=== PATIENT | female | born 1990 | race Caucasian/White ===

== ENCOUNTER 2016-07-18 16:33 | Emergency (ER) | payer OTHER ==
[~2016-07-18] VITALS: Ht 162.6 cm; Wt 96.1 kg
[~2016-07-18 16:33] MED LIST: ALBUTEROL SULF8.5 GM IH; CELEXA; CLEOCIN300 MG PO; DEPAKOTE250 MG PO; MORGIDOX100 MG PO; MOTRIN600 MG PO; MOTRIN800 MG PO; NAPROSYN500 MG PO; NORCO 5/3251 TABLET PO; PERCOCET 5/31 TABLET PO; PRENATABS RX T1 EACH PO; PRENATAL VITAM1 EAC2 PO; ZOFRAN ODT8 MG PO; ZOLOFT25 MG PO; ~No Medications
[2016-07-18 17:46] LABS: EOSINOPHIL (%) 2.3 % (0-5); EOSINOPHIL COUNT 0.2 K/uL (0-0.3); HEMATOCRIT 44.4 % (36.0-46.0); IMMATURE GRANULOCYTE (%) 0.2 % (0.0-0.7); INSTRUMENT ABS NEUTROPHIL CT 3.8 K/uL; LYMPHOCYTE COUNT 4.4 K/uL (1.0-2.8); MCH 25.4 PG (29.0-34.0); MCHC 32.2 G/DL (30.0-36.0); MEAN PLAT.VOLUME 11.1 uM^3 (9.5-12.4); MONOCYTE (%) 4.1 % (3-12); MONOCYTE COUNT 0.4 K/uL (0-0.8); NEUTROPHIL (%) 43.4 % (45-76); NEUTROPHIL COUNT 3.8 K/uL (1.8-6.4); PLATELET COUNT 259 K/uL (156-360); RBC DIS.WIDTH-CV 14.2 % (11.8-14.6); RBC DIS.WIDTH-SD 41.1 % (39-53); RED BLOOD COUNT 5.62 M/uL (3.80-5.20); WHITE BLOOD COUNT 8.8 K/uL (4.1-10.2)
[2016-07-18 17:56] LABS: CHLORIDE 110 mEq/L (99-109)
[2016-07-18 17:57] LABS: SODIUM 139 mEq/L (136-147)
[2016-07-18 17:59] LABS: GLUCOSE 79 mg/dL (70-99)
[2016-07-18 18:00] LABS: ANION GAP 10 MEQ/L (2-14)
[2016-07-18 18:01] LABS: TOTAL BILIRUBIN 0.5 mg/dL (0.0-1.0)
[2016-07-18 18:02] LABS: ALKALINE PHOSPHATASE 77 IU/L (3-129); GFR ESTIMATE (CALCULATED) > 59 mL/min/
[2016-07-18 18:03] LABS: UREA NITROGEN (BUN) 10 mg/dL (9-23)
[2016-07-18 18:11] LABS: QUANTITATIVE HCG < 4.0 MIU/ML
[2016-07-18] MEDS ORDERED: BACLOFEN10 MG PO (19:54)
[2016-07-18] MEDS ORDERED: LORTAB 5-325 M1 EACH PO (19:54)
[2016-07-18] MEDS ORDERED: MOTRIN600 MG PO (19:54)
[2016-07-18 20:08] VITALS: BP 128/74
== END 2016-07-18 20:20 | disposition home or self-care (01) ==
LOC: EME 16:33
PROVIDERS: Emergency Medicine
DX: S39.012A Strain of muscle, fascia and tendon of lower back, initial encounter (principal); R10.9 Unspecified abdominal pain; Z87.442 Personal history of urinary calculi
CPT/HCPCS: 74176; 80053; 81003; 84702; 85025; 99281; 99285; J1885; J2270; J2405; J7030

== ENCOUNTER 2016-08-11 17:01 | Emergency (ER) | payer OTHER ==
[~2016-08-11] VITALS: Ht 162.6 cm; Wt 96.8 kg
[~2016-08-11 17:01] MED LIST changes: +BACLOFEN10 MG PO; +LORTAB 5-325 M1 EACH PO
[2016-08-11 17:52] LABS: HEMATOCRIT 43.4 % (36.0-46.0); MCHC 32.7 G/DL (30.0-36.0); MCV 79.5 FL (83-99); MEAN PLAT.VOLUME 11.2 uM^3 (9.5-12.4); PLATELET COUNT 259 K/uL (156-360); RBC DIS.WIDTH-CV 14.3 % (11.8-14.6); RBC DIS.WIDTH-SD 41.1 % (39-53); RED BLOOD COUNT 5.46 M/uL (3.80-5.20); WHITE BLOOD COUNT 8.4 K/uL (4.1-10.2)
[2016-08-11 18:03] LABS: CHLORIDE 110 mEq/L (99-109); POTASSIUM 4.2 mEq/L (3.7-5.4); SODIUM 140 mEq/L (136-147)
[2016-08-11 18:06] LABS: GLUCOSE 90 mg/dL (70-99)
[2016-08-11 18:07] LABS: ANION GAP 10 MEQ/L (2-14)
[2016-08-11 18:08] LABS: TOTAL BILIRUBIN 0.5 mg/dL (0.0-1.0)
[2016-08-11 18:09] LABS: ALKALINE PHOSPHATASE 67 IU/L (3-129); GFR ESTIMATE (CALCULATED) > 59 mL/min/
[2016-08-11 18:10] LABS: UREA NITROGEN (BUN) 10 mg/dL (9-23)
[2016-08-11 18:13] LABS: LIPASE 12 U/L (1.0-51.0)
[2016-08-11 18:18] LABS: QUANTITATIVE HCG < 4.0 MIU/ML
[2016-08-11 19:07] LABS: BILIRUBIN NEGATIVE; BLOOD NEGATIVE; COLOR YELLOW ((YELLOW)); GLUCOSE (STRIP) NEGATIVE; KETONES NEGATIVE; LEUKOCYTES NEGATIVE; NITRITE NEGATIVE; PROTEIN (STRIP) NEGATIVE; SPECIFIC GRAVITY 1.025 (1.000-1.030); UROBILINOGEN 0.2 MG/DL (0.2-1.0)
[2016-08-11 19:13] LABS: ADD MIUA? NO; UCUL ADDED? NO
[2016-08-11] MEDS ORDERED: PROMETHAZINE HC25 M1 PO (20:27)
[2016-08-11] MEDS ORDERED: BENTYL20 MG PO (20:27)
[2016-08-11 21:00] VITALS: BP 133/84
== END 2016-08-11 21:07 | disposition home or self-care (01) ==
LOC: EME 17:01
DX: A08.4 Viral intestinal infection, unspecified (principal); R11.2 Nausea with vomiting, unspecified; F17.200 Nicotine dependence, unspecified, uncomplicated
CPT/HCPCS: 80053; 81003; 83690; 84702; 85027; 99281; 99284; Q0169

== ENCOUNTER 2016-10-23 19:49 | Emergency (ER) | payer OTHER ==
[~2016-10-23] VITALS: Ht 162.6 cm; Wt 95.5 kg
[~2016-10-23 19:49] MED LIST changes: +BENTYL20 MG PO; +PROMETHAZINE HC25 M1 PO
[2016-10-23] MEDS ORDERED: PREDNISONE50 MG PO (20:33)
[2016-10-23] MEDS ORDERED: MOTRIN600 MG PO (20:33)
[2016-10-23] MEDS ORDERED: FLEXERIL5 MG PO (20:33)
[2016-10-23] MEDS ORDERED: TRAMADOL HCL50 MG PO (20:33)
[2016-10-23 20:49] VITALS: BP 144/90
== END 2016-10-23 20:50 | disposition home or self-care (01) ==
LOC: EME 19:49
DX: M54.5 Low back pain (principal)
CPT/HCPCS: 99281; 99283

== ENCOUNTER 2016-10-25 14:30 | Emergency (ER) | payer OTHER ==
[~2016-10-25] VITALS: Ht 162.6 cm; Wt 96.4 kg
[~2016-10-25 14:30] MED LIST changes: +FLEXERIL5 MG PO; +PREDNISONE50 MG PO; +TRAMADOL HCL50 MG PO
[2016-10-25 15:53] LABS: HEMATOCRIT 41.9 % (36.0-46.0); MCH 26.6 PG (29.0-34.0); MCHC 33.2 G/DL (30.0-36.0); MCV 80.1 FL (83-99); MEAN PLAT.VOLUME 11.3 uM^3 (9.5-12.4); PLATELET COUNT 226 K/uL (156-360); RBC DIS.WIDTH-CV 13.8 % (11.8-14.6); RBC DIS.WIDTH-SD 39.9 % (39-53); RED BLOOD COUNT 5.23 M/uL (3.80-5.20); WHITE BLOOD COUNT 12.1 K/uL (4.1-10.2)
[2016-10-25 16:03] LABS: CHLORIDE 112 mEq/L (99-109); POTASSIUM 3.9 mEq/L (3.7-5.4); SODIUM 142 mEq/L (136-147)
[2016-10-25 16:05] LABS: GLUCOSE 86 mg/dL (70-99)
[2016-10-25 16:06] LABS: ANION GAP 9 MEQ/L (2-14)
[2016-10-25 16:08] LABS: GFR ESTIMATE (CALCULATED) > 59 mL/min/
[2016-10-25 16:09] LABS: UREA NITROGEN (BUN) 10 mg/dL (9-23)
[2016-10-25 16:14] LABS: TROP-I INTERPRETATION NEGATIVE; TROPONIN-I < 0.01 ng/mL (0.0-0.30)
[2016-10-25 17:14] LABS: QUANTITATIVE HCG < 4.0 MIU/ML
[2016-10-25 18:26] LABS: TROP-I INTERPRETATION NEGATIVE; TROPONIN-I < 0.01 ng/mL (0.0-0.30)
[2016-10-25 20:30] VITALS: BP 141/86
== END 2016-10-25 20:31 | disposition home or self-care (01) ==
LOC: EME 14:30
PROVIDERS: Physician Assistant Medical
DX: R07.89 Other chest pain (principal); R51 Headache; F31.9 Bipolar disorder, unspecified; F17.200 Nicotine dependence, unspecified, uncomplicated
CPT/HCPCS: 71020; 80048; 84484; 84702; 85027; 93005; 99281; 99284; J1885; J2270

== ENCOUNTER 2016-11-01 12:24 | Emergency (ER) | payer OTHER ==
[~2016-11-01] VITALS: Ht 162.6 cm; Wt 94.1 kg
[2016-11-01 12:26] VITALS: BP 129/110
[2016-11-01 13:33] LABS: MCH 26.6 PG (29.0-34.0); MCHC 33.2 G/DL (30.0-36.0); MCV 80.3 FL (83-99); MEAN PLAT.VOLUME 11.6 uM^3 (9.5-12.4); PLATELET COUNT 227 K/uL (156-360); RBC DIS.WIDTH-CV 13.4 % (11.8-14.6); RBC DIS.WIDTH-SD 39.2 % (39-53); RED BLOOD COUNT 5.48 M/uL (3.80-5.20)
[2016-11-01 13:48] LABS: CHLORIDE 111 mEq/L (99-109); POTASSIUM 3.9 mEq/L (3.7-5.4); SODIUM 142 mEq/L (136-147)
[2016-11-01 13:50] LABS: GLUCOSE 154 mg/dL (70-99)
[2016-11-01 13:51] LABS: ANION GAP 9 MEQ/L (2-14)
[2016-11-01 13:52] LABS: TOTAL BILIRUBIN 0.6 mg/dL (0.0-1.0)
[2016-11-01 13:53] LABS: ALKALINE PHOSPHATASE 78 IU/L (3-129)
[2016-11-01 13:54] LABS: GFR ESTIMATE (CALCULATED) > 59 mL/min/
[2016-11-01 13:55] LABS: UREA NITROGEN (BUN) 10 mg/dL (9-23)
[2016-11-01 14:04] LABS: QUANTITATIVE HCG < 4.0 MIU/ML
[2016-11-02] MEDS ORDERED: ZOFRAN ODT4 MG PO (02:24)
[2016-11-02] MEDS ORDERED: PERCOCET 5/31 TABLET PO (02:24)
== END 2016-11-01 13:30 | disposition left against medical advice (07) ==
LOC: EME 12:24
DX: R10.9 Unspecified abdominal pain (principal); M54.9 Dorsalgia, unspecified; R11.10 Vomiting, unspecified; Z53.21 Procedure and treatment not carried out due to patient leaving prior to being seen by health care provider
CPT/HCPCS: 80053; 81003; 84702; 85027

== ENCOUNTER 2016-11-01 23:43 | Emergency (ER) | payer OTHER ==
[~2016-11-01] VITALS: Ht 162.6 cm; Wt 94.9 kg
[2016-11-02 00:51] LABS: HEMATOCRIT 43.1 % (36.0-46.0); MCH 26.8 PG (29.0-34.0); MCHC 33.2 G/DL (30.0-36.0); MCV 80.9 FL (83-99); MEAN PLAT.VOLUME 11.5 uM^3 (9.5-12.4); PLATELET COUNT 207 K/uL (156-360); RBC DIS.WIDTH-CV 13.6 % (11.8-14.6); RBC DIS.WIDTH-SD 39.7 % (39-53); RED BLOOD COUNT 5.33 M/uL (3.80-5.20); WHITE BLOOD COUNT 9.2 K/uL (4.1-10.2)
[2016-11-02 01:07] LABS: CHLORIDE 112 mEq/L (99-109); POTASSIUM 3.7 mEq/L (3.7-5.4); SODIUM 143 mEq/L (136-147)
[2016-11-02 01:11] LABS: ANION GAP 8 MEQ/L (2-14); GLUCOSE 103 mg/dL (70-99)
[2016-11-02 01:12] LABS: TOTAL BILIRUBIN 0.2 mg/dL (0.0-1.0)
[2016-11-02 01:13] LABS: ALKALINE PHOSPHATASE 85 IU/L (3-129); GFR ESTIMATE (CALCULATED) > 59 mL/min/
[2016-11-02 01:14] LABS: UREA NITROGEN (BUN) 12 mg/dL (9-23)
[2016-11-02 01:17] LABS: LIPASE 17 U/L (1.0-51.0)
[2016-11-02 01:34] LABS: ADD MIUA? NO; BILIRUBIN NEGATIVE; BLOOD NEGATIVE; COLOR YELLOW ((YELLOW)); GLUCOSE (STRIP) NEGATIVE; KETONES NEGATIVE; LEUKOCYTES NEGATIVE; NITRITE NEGATIVE; PROTEIN (STRIP) NEGATIVE; SPECIFIC GRAVITY 1.027 (1.000-1.030); UCUL ADDED? NO; UROBILINOGEN 0.2 MG/DL (0.2-1.0)
[2016-11-02] MEDS ORDERED: ZOFRAN ODT4 MG PO (02:24)
[2016-11-02] MEDS ORDERED: PERCOCET 5/31 TABLET PO (02:24)
[2016-11-02 02:37] VITALS: BP 123/97
== END 2016-11-02 02:39 | disposition home or self-care (01) ==
LOC: EME 23:43
PROVIDERS: Physician Assistant
DX: K80.50 Calculus of bile duct without cholangitis or cholecystitis without obstruction (principal); F17.200 Nicotine dependence, unspecified, uncomplicated; Z87.442 Personal history of urinary calculi
CPT/HCPCS: 76705; 80053; 81003; 83690; 85027; 99281; 99284; J2270; J2405; J7030

== ENCOUNTER 2016-11-15 11:57 | Emergency (ER) | payer OTHER ==
[~2016-11-15] VITALS: Ht 162.6 cm; Wt 95.0 kg
[~2016-11-15 11:57] MED LIST changes: +ZOFRAN ODT4 MG PO
[2016-11-15 13:19] LABS: HEMATOCRIT 43.8 % (36.0-46.0); MCH 26.8 PG (29.0-34.0); MCHC 33.3 G/DL (30.0-36.0); MCV 80.4 FL (83-99); MEAN PLAT.VOLUME 11.4 uM^3 (9.5-12.4); PLATELET COUNT 242 K/uL (156-360); RBC DIS.WIDTH-CV 13.4 % (11.8-14.6); RBC DIS.WIDTH-SD 38.8 % (39-53); RED BLOOD COUNT 5.45 M/uL (3.80-5.20); WHITE BLOOD COUNT 8.2 K/uL (4.1-10.2)
[2016-11-15 13:25] LABS: INTER. NORMALIZED RATIO 1.1; PROTHROMBIN TIME 11.6 SEC (10.2-12.9)
[2016-11-15 13:28] LABS: CHLORIDE 111 mEq/L (99-109); POTASSIUM 3.7 mEq/L (3.7-5.4); PTT 29.7 SEC (25-37); SODIUM 139 mEq/L (136-147)
[2016-11-15 13:30] LABS: GLUCOSE 140 mg/dL (70-99)
[2016-11-15 13:32] LABS: ANION GAP 9 MEQ/L (2-14); TOTAL BILIRUBIN 0.3 mg/dL (0.0-1.0)
[2016-11-15 13:34] LABS: ALKALINE PHOSPHATASE 83 IU/L (3-129); GFR ESTIMATE (CALCULATED) > 59 mL/min/
[2016-11-15 13:35] LABS: UREA NITROGEN (BUN) 14 mg/dL (9-23)
[2016-11-15 13:37] LABS: LIPASE 18 U/L (1.0-51.0)
[2016-11-15 13:54] LABS: ADD MIUA? YES; BILIRUBIN NEGATIVE; BLOOD NEGATIVE; COLOR YELLOW ((YELLOW)); GLUCOSE (STRIP) NEGATIVE; KETONES NEGATIVE; LEUKOCYTES MODERATE; NITRITE NEGATIVE; PROTEIN (STRIP) NEGATIVE; SPECIFIC GRAVITY 1.018 (1.000-1.030); UROBILINOGEN 0.2 MG/DL (0.2-1.0)
[2016-11-15 13:57] LABS: BACTERIA RARE /HPF; EPITHELIAL CELLS 1+ /HPF; MUCUS TRACE /LPF; RED BLOOD CELLS 0-5 /HPF (0-5); WHITE BLOOD CELLS 0-5 /HPF (0-5)
[2016-11-15] MEDS ORDERED: PERCOCET 5/31 TABLET PO (14:20)
[2016-11-15] MEDS ORDERED: ZOFRAN ODT4 MG PO (14:20)
[2016-11-15 14:52] VITALS: BP 142/82
[2016-11-16] MEDS ORDERED: IRON325 M1 PO (16:13)
[2016-11-16] MEDS ORDERED: ZOFRAN ODT4 MG PO (16:13)
== END 2016-11-15 14:53 | disposition home or self-care (01) ==
LOC: EME 11:57
PROVIDERS: Physician Assistant
DX: R10.13 Epigastric pain (principal); R11.0 Nausea; Z87.442 Personal history of urinary calculi; F17.200 Nicotine dependence, unspecified, uncomplicated
CPT/HCPCS: 71020; 80053; 81003; 83690; 85027; 85610; 85730; 86900; 86901; 93005; 99281; 99284

== ENCOUNTER 2016-11-16 13:52 | Observation (INO) | payer OTHER ==
[~2016-11-16] VITALS: Ht 162.6 cm; Wt 94.4 kg
[2016-11-16 14:27] LABS: HEMATOCRIT 44.5 % (36.0-46.0); MCH 26.3 PG (29.0-34.0); MCHC 32.8 G/DL (30.0-36.0); MEAN PLAT.VOLUME 11.3 uM^3 (9.5-12.4); PLATELET COUNT 238 K/uL (156-360); RBC DIS.WIDTH-CV 13.4 % (11.8-14.6); RED BLOOD COUNT 5.56 M/uL (3.80-5.20); WHITE BLOOD COUNT 8.8 K/uL (4.1-10.2)
[2016-11-16 14:40] LABS: CHLORIDE 111 mEq/L (99-109); POTASSIUM 4.2 mEq/L (3.7-5.4); SODIUM 140 mEq/L (136-147)
[2016-11-16 14:42] LABS: GLUCOSE 112 mg/dL (70-99)
[2016-11-16 14:43] LABS: ANION GAP 10 MEQ/L (2-14)
[2016-11-16 14:44] LABS: TOTAL BILIRUBIN 0.3 mg/dL (0.0-1.0)
[2016-11-16 14:45] LABS: ALKALINE PHOSPHATASE 83 IU/L (3-129)
[2016-11-16 14:46] LABS: GFR ESTIMATE (CALCULATED) > 59 mL/min/
[2016-11-16 14:47] LABS: UREA NITROGEN (BUN) 12 mg/dL (9-23)
[2016-11-16 14:54] LABS: QUANTITATIVE HCG < 4.0 MIU/ML
[2016-11-16 15:30] LABS: ADD MIUA? YES; BILIRUBIN NEGATIVE; BLOOD SMALL; COLOR STRAW ((YELLOW)); GLUCOSE (STRIP) NEGATIVE; KETONES NEGATIVE; LEUKOCYTES NEGATIVE; NITRITE NEGATIVE; PROTEIN (STRIP) NEGATIVE; SPECIFIC GRAVITY 1.008 (1.000-1.030); UROBILINOGEN 0.2 MG/DL (0.2-1.0)
[2016-11-16 15:32] LABS: BACTERIA RARE /HPF; EPITHELIAL CELLS 1+ /HPF; MUCUS TRACE /LPF; RED BLOOD CELLS 0-5 /HPF (0-5); UCUL ADDED? NO; WHITE BLOOD CELLS 0-5 /HPF (0-5)
[2016-11-16 15:56] LABS: LIPASE 12 U/L (1.0-51.0)
[2016-11-16] MEDS ORDERED: IRON325 M1 PO (16:13)
[2016-11-16] MEDS ORDERED: ZOFRAN ODT4 MG PO (16:13)
[2016-11-16 21:05] VITALS: BP 133/77
[2016-11-17] VITALS (7 sets, daily range): BP systolic 117–130; BP diastolic 51–85
[2016-11-18 04:00] VITALS: BP 132/66
[2016-11-18 07:43] VITALS: BP 129/65
[2016-11-18] MEDS ORDERED: PERCOCET 5/31 TABLET PO (09:30)
== END 2016-11-18 11:28 | disposition home or self-care (01) ==
LOC: EME 13:52 → EDOF 16:01 → 2EAST 16:01 → EDOF 16:01 → 2EAST 19:12
PROC: 0FT44ZZ Resection of Gallbladder, Percutaneous Endoscopic Approach (ICD-10-PCS; principal; 2016-11-17)
DX: K80.10 Calculus of gallbladder with chronic cholecystitis without obstruction (principal); F31.9 Bipolar disorder, unspecified; J45.909 Unspecified asthma, uncomplicated; I10 Essential (primary) hypertension; F17.210 Nicotine dependence, cigarettes, uncomplicated; E66.9 Obesity, unspecified
CPT/HCPCS: 80053; 81003; 83690; 84702; 85027; 88304; G0378; J0131; J0690; J1100; J1170; J1885; J2250; J2405; J2710; J2765; J3010; S0028

== ENCOUNTER 2016-12-18 14:29 | Emergency (ER) | payer OTHER ==
[~2016-12-18] VITALS: Ht 162.6 cm; Wt 93.6 kg
[~2016-12-18 14:29] MED LIST changes: +IRON325 M1 PO
[2016-12-18] MEDS ORDERED: VENTOLIN HFA18 GM IH (16:06)
[2016-12-18] MEDS ORDERED: TESSALON PERLE100 MG PO (16:20)
[2016-12-18] MEDS ORDERED: MOTRIN800 MG PO (16:21)
[2016-12-18] MEDS ORDERED: ZITHROMAX Z-PA250 MG PO (16:21)
[2016-12-18 16:31] VITALS: BP 137/94
== END 2016-12-18 16:34 | disposition home or self-care (01) ==
LOC: EME 14:29
DX: J06.9 Acute upper respiratory infection, unspecified (principal); J45.909 Unspecified asthma, uncomplicated; Z87.442 Personal history of urinary calculi; F17.200 Nicotine dependence, unspecified, uncomplicated
CPT/HCPCS: 71020; 94640; 99281; 99284

== ENCOUNTER 2016-12-24 12:24 | Emergency (ER) | payer OTHER ==
[~2016-12-24] VITALS: Ht 162.6 cm; Wt 94.0 kg
[~2016-12-24 12:24] MED LIST changes: +TESSALON PERLE100 MG PO; +VENTOLIN HFA18 GM IH; +ZITHROMAX Z-PA250 MG PO
[2016-12-24 13:26] LABS: EOSINOPHIL (%) 1.9 % (0-5); EOSINOPHIL COUNT 0.2 K/uL (0-0.3); HEMATOCRIT 42.9 % (36.0-46.0); IMMATURE GRANULOCYTE (%) 0.1 % (0.0-0.7); INSTRUMENT ABS NEUTROPHIL CT 3.5 K/uL; LYMPHOCYTE COUNT 4.2 K/uL (1.0-2.8); MCH 26.7 PG (29.0-34.0); MCHC 33.3 G/DL (30.0-36.0); MEAN PLAT.VOLUME 11.3 uM^3 (9.5-12.4); MONOCYTE (%) 4.1 % (3-12); MONOCYTE COUNT 0.3 K/uL (0-0.8); NEUTROPHIL (%) 42.3 % (45-76); NEUTROPHIL COUNT 3.5 K/uL (1.8-6.4); PLATELET COUNT 220 K/uL (156-360); RBC DIS.WIDTH-CV 13.6 % (11.8-14.6); RBC DIS.WIDTH-SD 39.3 % (39-53); RED BLOOD COUNT 5.36 M/uL (3.80-5.20); WHITE BLOOD COUNT 8.3 K/uL (4.1-10.2)
[2016-12-24 13:32] LABS: INTER. NORMALIZED RATIO 1.1; PROTHROMBIN TIME 11.6 SEC (10.2-12.9)
[2016-12-24 13:37] LABS: CHLORIDE 111 mEq/L (99-109); SODIUM 141 mEq/L (136-147)
[2016-12-24 13:39] LABS: GLUCOSE 92 mg/dL (70-99)
[2016-12-24 13:40] LABS: ANION GAP 9 MEQ/L (2-14)
[2016-12-24 13:41] LABS: TOTAL BILIRUBIN 0.3 mg/dL (0.0-1.0)
[2016-12-24 13:42] LABS: ALKALINE PHOSPHATASE 103 IU/L (3-129)
[2016-12-24 13:43] LABS: GFR ESTIMATE (CALCULATED) > 59 mL/min/
[2016-12-24 13:44] LABS: UREA NITROGEN (BUN) 10 mg/dL (9-23)
[2016-12-24 13:48] LABS: TROP-I INTERPRETATION NEGATIVE; TROPONIN-I < 0.01 ng/mL (0.0-0.30)
[2016-12-24] MEDS ORDERED: NAPROSYN500 MG PO (14:59)
[2016-12-24] MEDS ORDERED: TRAMADOL HCL50 MG PO (14:59)
[2016-12-24 15:27] VITALS: BP 142/77
== END 2016-12-24 15:28 | disposition home or self-care (01) ==
LOC: EME 12:24
PROVIDERS: Physician Assistant Medical
DX: R07.89 Other chest pain (principal); J45.909 Unspecified asthma, uncomplicated; F32.9 Major depressive disorder, single episode, unspecified; Z86.711 Personal history of pulmonary embolism; Z86.718 Personal history of other venous thrombosis and embolism; Z90.49 Acquired absence of other specified parts of digestive tract; F17.200 Nicotine dependence, unspecified, uncomplicated; Z87.442 Personal history of urinary calculi
CPT/HCPCS: 71275; 80053; 84484; 85025; 85610; 93005; 99281; 99285; J1885; J7030

== ENCOUNTER 2017-01-07 18:00 | Emergency (ER) | payer OTHER ==
[~2017-01-07] VITALS: Ht 162.6 cm; Wt 93.8 kg
[2017-01-07 20:06] LABS: HEMATOCRIT 41.7 % (36.0-46.0); MCH 26.5 PG (29.0-34.0); MCHC 32.9 G/DL (30.0-36.0); MCV 80.7 FL (83-99); MEAN PLAT.VOLUME 11.1 uM^3 (9.5-12.4); PLATELET COUNT 242 K/uL (156-360); RBC DIS.WIDTH-CV 13.6 % (11.8-14.6); RBC DIS.WIDTH-SD 40.1 % (39-53); RED BLOOD COUNT 5.17 M/uL (3.80-5.20); WHITE BLOOD COUNT 11.9 K/uL (4.1-10.2)
[2017-01-07 20:17] LABS: CHLORIDE 112 mEq/L (99-109); POTASSIUM 3.7 mEq/L (3.7-5.4); SODIUM 142 mEq/L (136-147)
[2017-01-07 20:19] LABS: GLUCOSE 87 mg/dL (70-99)
[2017-01-07 20:20] LABS: ANION GAP 13 MEQ/L (2-14)
[2017-01-07 20:23] LABS: GFR ESTIMATE (CALCULATED) > 59 mL/min/
[2017-01-07 20:24] LABS: UREA NITROGEN (BUN) 10 mg/dL (9-23)
[2017-01-07 21:06] LABS: ADD MIUA? NO; BILIRUBIN NEGATIVE; BLOOD NEGATIVE; COLOR STRAW ((YELLOW)); GLUCOSE (STRIP) NEGATIVE; KETONES NEGATIVE; LEUKOCYTES NEGATIVE; NITRITE NEGATIVE; PROTEIN (STRIP) NEGATIVE; SPECIFIC GRAVITY 1.008 (1.000-1.030); UCUL ADDED? NO; UROBILINOGEN 0.2 MG/DL (0.2-1.0)
[2017-01-07 22:23] VITALS: BP 126/82
== END 2017-01-07 22:24 | disposition home or self-care (01) ==
LOC: EME 18:00
PROVIDERS: Physician Assistant
DX: R55 Syncope and collapse (principal); E86.0 Dehydration; R19.7 Diarrhea, unspecified; Z90.49 Acquired absence of other specified parts of digestive tract; Z87.442 Personal history of urinary calculi; F17.200 Nicotine dependence, unspecified, uncomplicated
CPT/HCPCS: 70450; 71020; 80048; 81003; 84702; 85027; 93005; 99281; 99285; J1885; J7030

== ENCOUNTER → 2017-01-19 | Outpatient (CLI) | payer OTHER ==
[~2017-01-19] VITALS: Ht 165.1 cm; Wt 94.3 kg
[~2017-01-19] MED LIST changes: +IMODIUM A-D2 M2 PO
[2017-01-21 12:29] LABS: INTERNAL CONTROL VALID? YES
== END | disposition home or self-care (01) ==
LOC: AMB 12:48
PROVIDERS: Anesthesiology
PROC: 0DB68ZX Excision of Stomach, Via Natural or Artificial Opening Endoscopic, Diagnostic (ICD-10-PCS; principal; 2017-01-19)
DX: K29.70 Gastritis, unspecified, without bleeding (principal); R13.10 Dysphagia, unspecified; R10.11 Right upper quadrant pain; I10 Essential (primary) hypertension; F17.200 Nicotine dependence, unspecified, uncomplicated; Z80.0 Family history of malignant neoplasm of digestive organs
CPT/HCPCS: 84703; 88305; 88342 TC; J2250; J3010

== ENCOUNTER 2017-01-24 17:26 | Emergency (ER) | payer OTHER ==
[~2017-01-24] VITALS: Ht 162.6 cm; Wt 93.3 kg
[2017-01-24 18:45] LABS: HEMATOCRIT 41.8 % (36.0-46.0); MCH 26.8 PG (29.0-34.0); MCHC 33.3 G/DL (30.0-36.0); MCV 80.5 FL (83-99); MEAN PLAT.VOLUME 10.8 uM^3 (9.5-12.4); PLATELET COUNT 247 K/uL (156-360); RBC DIS.WIDTH-CV 13.2 % (11.8-14.6); RBC DIS.WIDTH-SD 38.6 % (39-53); RED BLOOD COUNT 5.19 M/uL (3.80-5.20); WHITE BLOOD COUNT 8.6 K/uL (4.1-10.2)
[2017-01-24 18:56] LABS: CHLORIDE 109 mEq/L (99-109); POTASSIUM 4.1 mEq/L (3.7-5.4); SODIUM 139 mEq/L (136-147)
[2017-01-24 18:58] LABS: GLUCOSE 92 mg/dL (70-99)
[2017-01-24 18:59] LABS: ANION GAP 7 MEQ/L (2-14)
[2017-01-24 19:00] LABS: TOTAL BILIRUBIN 0.3 mg/dL (0.0-1.0)
[2017-01-24 19:01] LABS: ALKALINE PHOSPHATASE 97 IU/L (3-129)
[2017-01-24 19:02] LABS: GFR ESTIMATE (CALCULATED) > 59 mL/min/
[2017-01-24 19:02] LABS: ADD MIUA? YES; BILIRUBIN SMALL; BLOOD NEGATIVE; COLOR AMBER ((YELLOW)); GLUCOSE (STRIP) NEGATIVE; KETONES 5; LEUKOCYTES NEGATIVE; NITRITE NEGATIVE; PROTEIN (STRIP) 30
[2017-01-24 19:03] LABS: UREA NITROGEN (BUN) 14 mg/dL (9-23)
[2017-01-24 19:05] LABS: LIPASE 354 U/L (1.0-51.0); QUANTITATIVE HCG < 4.0 MIU/ML
[2017-01-24 19:16] LABS: BACTERIA NONE SEEN /HPF; EPITHELIAL CELLS 1+ /HPF; MUCUS 3+ /LPF; RED BLOOD CELLS 0-5 /HPF (0-5); WHITE BLOOD CELLS 0-5 /HPF (0-5)
[2017-01-24 19:17] LABS: SPECIFIC GRAVITY 1.054 (1.000-1.030)
[2017-01-24] MEDS ORDERED: ZOFRAN ODT4 MG PO (19:45)
[2017-01-24] MEDS ORDERED: BENTYL20 MG PO (19:45)
[2017-01-24 20:04] VITALS: BP 139/103
== END 2017-01-24 20:05 | disposition home or self-care (01) ==
LOC: EME 17:26
PROVIDERS: Nurse Practitioner Family
DX: K42.9 Umbilical hernia without obstruction or gangrene (principal); R74.8 Abnormal levels of other serum enzymes; R11.0 Nausea; R51 Headache; J45.909 Unspecified asthma, uncomplicated; I10 Essential (primary) hypertension; Z87.442 Personal history of urinary calculi; F32.9 Major depressive disorder, single episode, unspecified; F31.9 Bipolar disorder, unspecified; F17.200 Nicotine dependence, unspecified, uncomplicated
CPT/HCPCS: 80053; 81003; 83690; 84702; 85027; 99281; 99284

== ENCOUNTER 2017-01-28 16:57 | Emergency (ER) | payer OTHER ==
[~2017-01-28] VITALS: Ht 162.6 cm; Wt 93.6 kg
[2017-01-28 18:30] LABS: HEMATOCRIT 40.1 % (36.0-46.0); MCH 26.6 PG (29.0-34.0); MCHC 32.9 G/DL (30.0-36.0); MCV 80.8 FL (83-99); MEAN PLAT.VOLUME 10.9 uM^3 (9.5-12.4); PLATELET COUNT 230 K/uL (156-360); RBC DIS.WIDTH-CV 13.1 % (11.8-14.6); RBC DIS.WIDTH-SD 38.3 % (39-53); RED BLOOD COUNT 4.96 M/uL (3.80-5.20); WHITE BLOOD COUNT 10.9 K/uL (4.1-10.2)
[2017-01-28 18:41] LABS: ADD MIUA? NO; BILIRUBIN NEGATIVE; BLOOD NEGATIVE; COLOR STRAW ((YELLOW)); GLUCOSE (STRIP) NEGATIVE; KETONES NEGATIVE; LEUKOCYTES NEGATIVE; NITRITE NEGATIVE; PROTEIN (STRIP) NEGATIVE; SPECIFIC GRAVITY 1.005 (1.000-1.030); UCUL ADDED? NO; UROBILINOGEN 0.2 MG/DL (0.2-1.0)
[2017-01-28 18:42] LABS: CHLORIDE 108 mEq/L (99-109); POTASSIUM 3.8 mEq/L (3.7-5.4); SODIUM 141 mEq/L (136-147)
[2017-01-28 18:44] LABS: GLUCOSE 89 mg/dL (70-99)
[2017-01-28 18:45] LABS: ANION GAP 9 MEQ/L (2-14)
[2017-01-28 18:48] LABS: GFR ESTIMATE (CALCULATED) > 59 mL/min/; UREA NITROGEN (BUN) 9 mg/dL (9-23)
[2017-01-28 18:55] LABS: QUANTITATIVE HCG < 4.0 MIU/ML
[2017-01-28] MEDS ORDERED: TYLENOL WITH C1 EACH PO (20:02)
[2017-01-28] MEDS ORDERED: PEN-VEE K,VEET500 MG PO (20:02)
[2017-01-28 20:22] VITALS: BP 130/89
== END 2017-01-28 20:24 | disposition home or self-care (01) ==
LOC: EME 16:57
DX: R10.9 Unspecified abdominal pain (principal); K02.9 Dental caries, unspecified; I10 Essential (primary) hypertension; J45.909 Unspecified asthma, uncomplicated; F32.9 Major depressive disorder, single episode, unspecified; Z87.442 Personal history of urinary calculi; F17.200 Nicotine dependence, unspecified, uncomplicated; Z90.49 Acquired absence of other specified parts of digestive tract
CPT/HCPCS: 74000; 80048; 81003; 84702; 85027; 99281; 99284; J1885

== ENCOUNTER 2017-02-01 20:02 | Emergency (ER) | payer OTHER ==
[~2017-02-01] VITALS: Ht 162.6 cm; Wt 93.7 kg
[~2017-02-01 20:02] MED LIST changes: +PEN-VEE K,VEET500 MG PO; +TYLENOL WITH C1 EACH PO
[2017-02-01 21:58] LABS: ADD MIUA? NO; BILIRUBIN NEGATIVE; BLOOD NEGATIVE; COLOR STRAW ((YELLOW)); GLUCOSE (STRIP) NEGATIVE; KETONES NEGATIVE; LEUKOCYTES NEGATIVE; NITRITE NEGATIVE; PROTEIN (STRIP) NEGATIVE; SPECIFIC GRAVITY 1.004 (1.000-1.030); UCUL ADDED? NO; UROBILINOGEN 0.2 MG/DL (0.2-1.0)
[2017-02-01] MEDS ORDERED: TYLENOL WITH C1 EACH PO (22:54)
[2017-02-01 23:12] VITALS: BP 128/85
== END 2017-02-01 23:13 | disposition home or self-care (01) ==
LOC: EME 20:02
PROVIDERS: Physician Assistant
DX: R10.2 Pelvic and perineal pain (principal); I10 Essential (primary) hypertension; J45.909 Unspecified asthma, uncomplicated; F32.9 Major depressive disorder, single episode, unspecified; F17.200 Nicotine dependence, unspecified, uncomplicated; Z79.3 Long term (current) use of hormonal contraceptives; Z87.442 Personal history of urinary calculi; Z90.49 Acquired absence of other specified parts of digestive tract
CPT/HCPCS: 76856; 81003; 99281; 99284

== ENCOUNTER 2017-02-18 13:35 | Emergency (ER) | payer OTHER ==
[~2017-02-18] VITALS: Ht 162.6 cm; Wt 94.5 kg
[2017-02-18] MEDS ORDERED: NECON1 EAC4 PO (14:01)
[2017-02-18] MEDS ORDERED: HYDROCODON-ACE1 EAC7 PO (14:01)
[2017-02-18] MEDS ORDERED: MELOXICAM15 MG PO (14:01)
[2017-02-18] MEDS ORDERED: SERTRALINE HCL100 MG PO (14:01)
[2017-02-18] MEDS ORDERED: AMITRIPTYLINE H10 MG PO (14:01)
[2017-02-18 14:36] LABS: HEMATOCRIT 40.3 % (36.0-46.0); MCH 27.2 PG (29.0-34.0); MCV 80.1 FL (83-99); MEAN PLAT.VOLUME 10.9 uM^3 (9.5-12.4); PLATELET COUNT 262 K/uL (156-360); RBC DIS.WIDTH-CV 13.5 % (11.8-14.6); RBC DIS.WIDTH-SD 39.2 % (39-53); RED BLOOD COUNT 5.03 M/uL (3.80-5.20); WHITE BLOOD COUNT 10.7 K/uL (4.1-10.2)
[2017-02-18 14:41] LABS: ADD MIUA? YES; BILIRUBIN NEGATIVE; BLOOD NEGATIVE; COLOR YELLOW ((YELLOW)); GLUCOSE (STRIP) NEGATIVE; KETONES NEGATIVE; LEUKOCYTES LARGE; NITRITE NEGATIVE; PROTEIN (STRIP) 30; SPECIFIC GRAVITY 1.025 (1.000-1.030); UROBILINOGEN 0.2 MG/DL (0.2-1.0)
[2017-02-18 14:45] LABS: CHLORIDE 109 mEq/L (99-109); SODIUM 139 mEq/L (136-147)
[2017-02-18 14:47] LABS: GLUCOSE 88 mg/dL (70-99)
[2017-02-18 14:49] LABS: ANION GAP 10 MEQ/L (2-14)
[2017-02-18 14:51] LABS: GFR ESTIMATE (CALCULATED) > 59 mL/min/
[2017-02-18 14:52] LABS: UREA NITROGEN (BUN) 13 mg/dL (9-23)
[2017-02-18 14:59] LABS: QUANTITATIVE HCG 79.4 MIU/ML
[2017-02-18 15:06] LABS: CASTS NONE SEEN /LPF; EPITHELIAL CELLS 4+ /HPF; MUCUS TRACE /LPF
[2017-02-18 15:07] LABS: BACTERIA 4+ /HPF; RED BLOOD CELLS NONE SEEN /HPF (0-5); WHITE BLOOD CELLS 0-5 /HPF (0-5)
[2017-02-18 16:20] VITALS: BP 137/82
== END 2017-02-18 16:21 | disposition home or self-care (01) ==
LOC: EME 13:35
PROVIDERS: Physician Assistant
DX: O20.0 Threatened abortion (principal); R11.0 Nausea; R35.0 Frequency of micturition; Z90.49 Acquired absence of other specified parts of digestive tract; Z87.442 Personal history of urinary calculi; O99.330 Smoking (tobacco) complicating pregnancy, unspecified trimester; F17.200 Nicotine dependence, unspecified, uncomplicated
CPT/HCPCS: 80048; 81003; 84702; 85027; 99281; 99284

== ENCOUNTER 2017-03-27 17:50 | Emergency (ER) | payer OTHER ==
[~2017-03-27] VITALS: Ht 162.6 cm; Wt 95.9 kg
[~2017-03-27 17:50] MED LIST changes: +AMITRIPTYLINE H10 MG PO; +FIORICET 50-301 EAC1 PO; +HYDROCODON-ACE1 EAC7 PO; +MELOXICAM15 MG PO; +NECON1 EAC4 PO; +SERTRALINE HCL100 MG PO
[2017-03-27 18:36] LABS: HEMATOCRIT 41.3 % (36.0-46.0); MCH 27.1 PG (29.0-34.0); MCHC 33.4 G/DL (30.0-36.0); MCV 81.1 FL (83-99); MEAN PLAT.VOLUME 11.3 uM^3 (9.5-12.4); PLATELET COUNT 214 K/uL (156-360); RBC DIS.WIDTH-CV 13.1 % (11.8-14.6); RBC DIS.WIDTH-SD 38.5 % (39-53); RED BLOOD COUNT 5.09 M/uL (3.80-5.20); WHITE BLOOD COUNT 7.9 K/uL (4.1-10.2)
[2017-03-27 18:47] LABS: CHLORIDE 110 mEq/L (99-109); POTASSIUM 3.6 mEq/L (3.7-5.4); SODIUM 140 mEq/L (136-147)
[2017-03-27 18:50] LABS: GLUCOSE 135 mg/dL (70-99)
[2017-03-27 18:51] LABS: ANION GAP 11 MEQ/L (2-14)
[2017-03-27 18:52] LABS: TOTAL BILIRUBIN 0.2 mg/dL (0.0-1.0)
[2017-03-27 18:53] LABS: ALKALINE PHOSPHATASE 87 IU/L (3-129); GFR ESTIMATE (CALCULATED) > 59 mL/min/
[2017-03-27 18:54] LABS: UREA NITROGEN (BUN) 10 mg/dL (9-23)
[2017-03-27 19:03] LABS: QUANTITATIVE HCG < 4.0 MIU/ML
[2017-03-27 20:20] LABS: ADD MIUA? YES; BILIRUBIN NEGATIVE; BLOOD NEGATIVE; COLOR YELLOW ((YELLOW)); GLUCOSE (STRIP) NEGATIVE; KETONES NEGATIVE; LEUKOCYTES NEGATIVE; NITRITE NEGATIVE; PROTEIN (STRIP) NEGATIVE; SPECIFIC GRAVITY 1.019 (1.000-1.030); UROBILINOGEN 0.2 MG/DL (0.2-1.0)
[2017-03-27 20:24] LABS: BACTERIA RARE /HPF; EPITHELIAL CELLS RARE /HPF; MUCUS TRACE /LPF; RED BLOOD CELLS 0-5 /HPF (0-5); UCUL ADDED? NO; WHITE BLOOD CELLS 0-5 /HPF (0-5)
[2017-03-27] MEDS ORDERED: ZOFRAN4 MG PO (22:45)
[2017-03-27] MEDS ORDERED: PERCOCET 5/31 TABLET PO (22:45)
[2017-03-27 23:17] VITALS: BP 113/86
== END 2017-03-27 23:20 | disposition home or self-care (01) ==
LOC: EME 17:50
DX: K42.9 Umbilical hernia without obstruction or gangrene (principal); I10 Essential (primary) hypertension; J45.909 Unspecified asthma, uncomplicated; F32.9 Major depressive disorder, single episode, unspecified; F31.9 Bipolar disorder, unspecified; Z87.442 Personal history of urinary calculi; Z90.49 Acquired absence of other specified parts of digestive tract; F17.200 Nicotine dependence, unspecified, uncomplicated
CPT/HCPCS: 74177; 80053; 81003; 84702; 85027; 99281; 99285; J2270; J2405; J3010; J7040

== ENCOUNTER 2017-04-09 08:46 | Day surgery (SDC) | payer OTHER ==
[~2017-04-09] VITALS: Ht 165.1 cm; Wt 96.2 kg
[~2017-04-09 08:46] MED LIST changes: +ZOFRAN4 MG PO
[2017-04-09 09:14] VITALS: BP 134/86
[2017-04-09] MEDS ORDERED: ULTRAM50 MG PO (11:49)
[2017-04-09 14:26] VITALS: BP 119/64
[2017-04-09 15:31] VITALS: BP 141/74
[2017-04-13 10:52] LABS: INTERNAL CONTROL VALID? YES
== END 2017-04-09 15:25 | disposition home or self-care (01) ==
LOC: SDC
PROVIDERS: Surgery
PROC: 0WUF4JZ Supplement Abdominal Wall with Synthetic Substitute, Percutaneous Endoscopic Approach (ICD-10-PCS; principal; 2017-04-09)
DX: K43.0 Incisional hernia with obstruction, without gangrene (principal); I10 Essential (primary) hypertension; J45.909 Unspecified asthma, uncomplicated; F17.200 Nicotine dependence, unspecified, uncomplicated
CPT/HCPCS: 84703; C1781; J0330; J1100; J1170; J2001; J2250; J2405; J2710; J2795; J3010; J3475; Q0175; S0074

== ENCOUNTER 2017-04-23 20:53 | Emergency (ER) | payer OTHER ==
[~2017-04-23] VITALS: Ht 162.6 cm; Wt 95.3 kg
[~2017-04-23 20:53] MED LIST changes: +ULTRAM50 MG PO
[2017-04-23 21:43] LABS: HEMATOCRIT 41.7 % (36.0-46.0); HEMOGLOBIN 14.2 G/DL (11.9-15.5); MCH 27.4 PG (29.0-34.0); MCHC 34.1 G/DL (30.0-36.0); MCV 80.3 FL (83-99); PLATELET COUNT 245 K/uL (156-360); RBC DIS.WIDTH-CV 12.7 % (11.8-14.6); RBC DIS.WIDTH-SD 36.8 % (39-53); RED BLOOD COUNT 5.19 M/uL (3.80-5.20); WHITE BLOOD COUNT 10.3 K/uL (4.1-10.2)
[2017-04-23 21:59] LABS: APPEARANCE CLEAR ((CLEAR)); BILIRUBIN NEGATIVE; BLOOD NEGATIVE; COLOR YELLOW ((YELLOW)); GLUCOSE (STRIP) NEGATIVE; KETONES NEGATIVE; LEUKOCYTES NEGATIVE; NITRITE NEGATIVE; PROTEIN (STRIP) NEGATIVE; SPECIFIC GRAVITY 1.016 (1.000-1.030); UCUL ADDED? NO; UROBILINOGEN 0.2 MG/DL (0.2-1.0)
[2017-04-23 22:00] LABS: ALBUMIN 4.1 g/dL (3.2-4.8); CHLORIDE 108 mEq/L (99-109); POTASSIUM 4.2 mEq/L (3.7-5.4); SODIUM 139 mEq/L (136-147)
[2017-04-23 22:02] LABS: GLUCOSE 92 mg/dL (70-99); TOTAL PROTEIN 7.5 g/dL (6.4-8.3)
[2017-04-23 22:04] LABS: TOTAL BILIRUBIN 0.2 mg/dL (0.0-1.0)
[2017-04-23 22:06] LABS: ALKALINE PHOSPHATASE 98 IU/L (3-129); CREATININE 0.8 mg/dL (0.6-1.3); GFR ESTIMATE (CALCULATED) > 59 mL/min/
[2017-04-23 22:07] LABS: UREA NITROGEN (BUN) 14 mg/dL (9-23)
[2017-04-23 22:08] LABS: AST (GOT) 13 IU/L (2-34)
[2017-04-23 22:09] LABS: ALT (GPT) 17 IU/L (3-49)
[2017-04-23 22:20] LABS: QUANTITATIVE HCG < 4.0 MIU/ML
[2017-04-24] MEDS ORDERED: PERCOCET 5/31 TABLET PO (01:29)
[2017-04-24] MEDS ORDERED: ZOFRAN ODT4 MG PO (01:29)
[2017-04-24 01:44] VITALS: BP 134/82
== END 2017-04-24 01:45 | disposition home or self-care (01) ==
LOC: EXP 20:53 → EME 20:53 → EXP 04-24 01:45
DX: G89.18 Other acute postprocedural pain (principal); R10.30 Lower abdominal pain, unspecified; R11.0 Nausea; I10 Essential (primary) hypertension; F32.9 Major depressive disorder, single episode, unspecified; J45.909 Unspecified asthma, uncomplicated; F17.200 Nicotine dependence, unspecified, uncomplicated; Z98.890 Other specified postprocedural states; Z87.442 Personal history of urinary calculi; Z90.49 Acquired absence of other specified parts of digestive tract
CPT/HCPCS: 74177; 80053; 81003; 84702; 85027; 99281; 99285; J2270; J2405; J3010; J7030

== ENCOUNTER 2017-04-29 13:26 | Emergency (ER) | payer OTHER ==
[~2017-04-29] VITALS: Ht 162.6 cm; Wt 95.3 kg
[2017-04-29 16:37] LABS: HEMATOCRIT 39.8 % (36.0-46.0); HEMOGLOBIN 13.8 G/DL (11.9-15.5); MCH 27.7 PG (29.0-34.0); MCHC 34.7 G/DL (30.0-36.0); MCV 79.9 FL (83-99); PLATELET COUNT 250 K/uL (156-360); RBC DIS.WIDTH-CV 12.7 % (11.8-14.6); RBC DIS.WIDTH-SD 36.2 % (39-53); RED BLOOD COUNT 4.98 M/uL (3.80-5.20)
[2017-04-29 16:42] LABS: APPEARANCE CLOUDY ((CLEAR)); BILIRUBIN NEGATIVE; BLOOD NEGATIVE; COLOR YELLOW ((YELLOW)); GLUCOSE (STRIP) NEGATIVE; KETONES NEGATIVE; LEUKOCYTES NEGATIVE; NITRITE NEGATIVE; PROTEIN (STRIP) NEGATIVE; UROBILINOGEN 0.2 MG/DL (0.2-1.0)
[2017-04-29 16:45] LABS: CHLORIDE 106 mEq/L (99-109); POTASSIUM 4.1 mEq/L (3.7-5.4); SODIUM 138 mEq/L (136-147)
[2017-04-29 16:48] LABS: GLUCOSE 96 mg/dL (70-99); TOTAL PROTEIN 7.3 g/dL (6.4-8.3)
[2017-04-29 16:51] LABS: ALKALINE PHOSPHATASE 97 IU/L (3-129); CREATININE 0.7 mg/dL (0.6-1.3); GFR ESTIMATE (CALCULATED) > 59 mL/min/
[2017-04-29 16:52] LABS: UREA NITROGEN (BUN) 15 mg/dL (9-23)
[2017-04-29 16:53] LABS: AST (GOT) 12 IU/L (2-34)
[2017-04-29 16:54] LABS: ALT (GPT) 16 IU/L (3-49)
[2017-04-29 16:55] LABS: LIPASE 15 U/L (1.0-51.0)
[2017-04-29 16:59] LABS: TOTAL BILIRUBIN 0.3 mg/dL (0.0-1.0)
[2017-04-29 17:01] LABS: QUANTITATIVE HCG 17.8 MIU/ML
[2017-04-29 17:12] LABS: AMORPHOUS URATES CRYSTALS 3+; BACTERIA RARE /HPF; EPITHELIAL CELLS 1+ /HPF; MUCUS NONE SEEN /LPF; RED BLOOD CELLS 0-5 /HPF (0-5); UCUL ADDED? NO; WHITE BLOOD CELLS 0-5 /HPF (0-5)
[2017-04-29 19:02] VITALS: BP 120/88
== END 2017-04-29 19:02 | disposition home or self-care (01) ==
LOC: EME 13:26
PROVIDERS: Emergency Medicine
DX: O26.891 Other specified pregnancy related conditions, first trimester (principal); R10.9 Unspecified abdominal pain; Z3A.00 Weeks of gestation of pregnancy not specified; F17.200 Nicotine dependence, unspecified, uncomplicated; Z87.442 Personal history of urinary calculi
CPT/HCPCS: 80053; 81003; 83690; 84702; 85027; 87502; 99281; 99285; J2270; J2405; J7030

== ENCOUNTER 2017-05-16 21:32 | Emergency (ER) | payer OTHER ==
[~2017-05-16] VITALS: Ht 162.6 cm; Wt 96.8 kg
[2017-05-16 22:17] LABS: HEMATOCRIT 39.1 % (36.0-46.0); HEMOGLOBIN 13.1 G/DL (11.9-15.5); MCH 27.5 PG (29.0-34.0); MCHC 33.5 G/DL (30.0-36.0); PLATELET COUNT 225 K/uL (156-360); RBC DIS.WIDTH-CV 13.4 % (11.8-14.6); RBC DIS.WIDTH-SD 39.9 % (39-53); RED BLOOD COUNT 4.77 M/uL (3.80-5.20); WHITE BLOOD COUNT 10.2 K/uL (4.1-10.2)
[2017-05-16 22:27] LABS: ALBUMIN 4.2 g/dL (3.2-4.8); CHLORIDE 107 mEq/L (99-109); POTASSIUM 3.7 mEq/L (3.7-5.4); SODIUM 138 mEq/L (136-147)
[2017-05-16 22:30] LABS: GLUCOSE 97 mg/dL (70-99); TOTAL PROTEIN 7.1 g/dL (6.4-8.3)
[2017-05-16 22:32] LABS: TOTAL BILIRUBIN 0.2 mg/dL (0.0-1.0)
[2017-05-16 22:33] LABS: ALKALINE PHOSPHATASE 81 IU/L (3-129); CREATININE 0.8 mg/dL (0.6-1.3); GFR ESTIMATE (CALCULATED) > 59 mL/min/
[2017-05-16 22:34] LABS: UREA NITROGEN (BUN) 12 mg/dL (9-23)
[2017-05-16 22:35] LABS: AST (GOT) 15 IU/L (2-34)
[2017-05-16 22:36] LABS: ALT (GPT) 24 IU/L (3-49)
[2017-05-16 22:37] LABS: LIPASE 7 U/L (1.0-51.0)
[2017-05-16 22:51] LABS: APPEARANCE CLEAR ((CLEAR)); BILIRUBIN NEGATIVE; BLOOD NEGATIVE; COLOR COLORLESS ((YELLOW)); GLUCOSE (STRIP) NEGATIVE; KETONES NEGATIVE; LEUKOCYTES NEGATIVE; NITRITE NEGATIVE; PROTEIN (STRIP) NEGATIVE; SPECIFIC GRAVITY 1.004 (1.000-1.030); UCUL ADDED? NO; UROBILINOGEN 0.2 MG/DL (0.2-1.0)
[2017-05-17 00:33] VITALS: BP 151/92
== END 2017-05-17 00:38 | disposition home or self-care (01) ==
LOC: EME 21:32
DX: O20.0 Threatened abortion (principal); Z3A.01 Less than 8 weeks gestation of pregnancy; O10.911 Unspecified pre-existing hypertension complicating pregnancy, first trimester; O99.331 Smoking (tobacco) complicating pregnancy, first trimester; F17.200 Nicotine dependence, unspecified, uncomplicated; O99.511 Diseases of the respiratory system complicating pregnancy, first trimester; J45.909 Unspecified asthma, uncomplicated; O99.341 Other mental disorders complicating pregnancy, first trimester; F32.9 Major depressive disorder, single episode, unspecified; Z87.442 Personal history of urinary calculi
CPT/HCPCS: 76801; 80053; 81003; 83690; 84702; 85027; 99281; 99284

== ENCOUNTER 2017-06-28 16:18 | Emergency (ER) | payer OTHER ==
[~2017-06-28] VITALS: Ht 162.6 cm; Wt 95.9 kg
[2017-06-28 16:50] LABS: APPEARANCE CLEAR ((CLEAR)); BILIRUBIN NEGATIVE; BLOOD NEGATIVE; COLOR STRAW ((YELLOW)); GLUCOSE (STRIP) NEGATIVE; KETONES NEGATIVE; LEUKOCYTES NEGATIVE; NITRITE NEGATIVE; PROTEIN (STRIP) NEGATIVE; SPECIFIC GRAVITY 1.009 (1.000-1.030); UROBILINOGEN 0.2 MG/DL (0.2-1.0)
[2017-06-28 17:03] LABS: HEMATOCRIT 36.2 % (36.0-46.0); HEMOGLOBIN 12.4 G/DL (11.9-15.5); MCH 27.8 PG (29.0-34.0); MCHC 34.3 G/DL (30.0-36.0); MCV 81.2 FL (83-99); PLATELET COUNT 200 K/uL (156-360); RBC DIS.WIDTH-CV 13.1 % (11.8-14.6); RBC DIS.WIDTH-SD 38.9 % (39-53); RED BLOOD COUNT 4.46 M/uL (3.80-5.20); WHITE BLOOD COUNT 8.9 K/uL (4.1-10.2)
[2017-06-28 17:12] LABS: CHLORIDE 109 mEq/L (99-109); POTASSIUM 3.9 mEq/L (3.7-5.4); SODIUM 137 mEq/L (136-147)
[2017-06-28 17:14] LABS: GLUCOSE 78 mg/dL (70-99)
[2017-06-28 17:18] LABS: CREATININE 0.6 mg/dL (0.6-1.3); GFR ESTIMATE (CALCULATED) > 59 mL/min/
[2017-06-28 17:19] LABS: UREA NITROGEN (BUN) 7 mg/dL (9-23)
[2017-06-28 17:26] LABS: TROP-I INTERPRETATION NEGATIVE; TROPONIN-I < 0.01 ng/mL (0.0-0.30)
[2017-06-28 19:12] VITALS: BP 120/63
== END 2017-06-28 19:13 | disposition home or self-care (01) ==
LOC: EME 16:18
PROVIDERS: Nurse Practitioner Family
DX: O26.891 Other specified pregnancy related conditions, first trimester (principal); R00.2 Palpitations; R06.02 Shortness of breath; O99.331 Smoking (tobacco) complicating pregnancy, first trimester; F17.200 Nicotine dependence, unspecified, uncomplicated; Z3A.12 12 weeks gestation of pregnancy; O99.511 Diseases of the respiratory system complicating pregnancy, first trimester; J45.909 Unspecified asthma, uncomplicated; O10.911 Unspecified pre-existing hypertension complicating pregnancy, first trimester; O99.341 Other mental disorders complicating pregnancy, first trimester; F32.9 Major depressive disorder, single episode, unspecified
CPT/HCPCS: 71046; 80048; 81003; 84484; 85027; 85379; 93005; 99281; 99284; J7030

== ENCOUNTER 2017-07-10 18:47 | Emergency (ER) | payer OTHER ==
[~2017-07-10] VITALS: Ht 162.6 cm; Wt 95.4 kg
[2017-07-10 19:28] LABS: HEMATOCRIT 38.5 % (36.0-46.0); HEMOGLOBIN 13.3 G/DL (11.9-15.5); MCH 27.9 PG (29.0-34.0); MCHC 34.5 G/DL (30.0-36.0); MCV 80.9 FL (83-99); PLATELET COUNT 236 K/uL (156-360); RBC DIS.WIDTH-CV 13.2 % (11.8-14.6); RBC DIS.WIDTH-SD 38.5 % (39-53); RED BLOOD COUNT 4.76 M/uL (3.80-5.20); WHITE BLOOD COUNT 9.8 K/uL (4.1-10.2)
[2017-07-10 19:41] LABS: ALBUMIN 3.7 g/dL (3.2-4.8); CHLORIDE 108 mEq/L (99-109); POTASSIUM 3.6 mEq/L (3.7-5.4); SODIUM 136 mEq/L (136-147)
[2017-07-10 19:43] LABS: GLUCOSE 94 mg/dL (70-99); TOTAL PROTEIN 6.9 g/dL (6.4-8.3)
[2017-07-10 19:43] LABS: APPEARANCE CLEAR ((CLEAR)); BILIRUBIN NEGATIVE; BLOOD NEGATIVE; COLOR STRAW ((YELLOW)); GLUCOSE (STRIP) NEGATIVE; KETONES NEGATIVE; LEUKOCYTES SMALL; NITRITE NEGATIVE; PROTEIN (STRIP) NEGATIVE; SPECIFIC GRAVITY 1.006 (1.000-1.030); UROBILINOGEN 0.2 MG/DL (0.2-1.0)
[2017-07-10 19:45] LABS: TOTAL BILIRUBIN 0.2 mg/dL (0.0-1.0)
[2017-07-10 19:46] LABS: ALKALINE PHOSPHATASE 82 IU/L (3-129)
[2017-07-10 19:47] LABS: CREATININE 0.6 mg/dL (0.6-1.3); GFR ESTIMATE (CALCULATED) > 59 mL/min/
[2017-07-10 19:48] LABS: AST (GOT) 9 IU/L (2-34); UREA NITROGEN (BUN) 6 mg/dL (9-23)
[2017-07-10 19:50] LABS: ALT (GPT) 12 IU/L (3-49); LIPASE 8 U/L (1.0-51.0)
[2017-07-10 19:54] LABS: BACTERIA 2+ /HPF; EPITHELIAL CELLS 2+ /HPF; MUCUS NONE SEEN /LPF; RED BLOOD CELLS 0-5 /HPF (0-5); UCUL ADDED? YES; WHITE BLOOD CELLS 0-5 /HPF (0-5)
[2017-07-10] MEDS ORDERED: KEFLEX500 MG PO (20:14)
[2017-07-10 20:37] VITALS: BP 138/88
== END 2017-07-10 21:36 | disposition home or self-care (01) ==
LOC: EME 18:47
PROVIDERS: Physician Assistant
DX: O23.42 Unspecified infection of urinary tract in pregnancy, second trimester (principal); N39.0 Urinary tract infection, site not specified; O26.892 Other specified pregnancy related conditions, second trimester; R10.9 Unspecified abdominal pain; F17.200 Nicotine dependence, unspecified, uncomplicated; Z3A.14 14 weeks gestation of pregnancy; O99.512 Diseases of the respiratory system complicating pregnancy, second trimester; J45.909 Unspecified asthma, uncomplicated; O99.342 Other mental disorders complicating pregnancy, second trimester; F32.9 Major depressive disorder, single episode, unspecified; O16.2 Unspecified maternal hypertension, second trimester; O99.332 Smoking (tobacco) complicating pregnancy, second trimester; Z87.442 Personal history of urinary calculi; Z90.49 Acquired absence of other specified parts of digestive tract
CPT/HCPCS: 71045; 76770; 80053; 81003; 83690; 85027; 85379; 87086; 99281; 99284